=== PATIENT | female | born 1940 | race Caucasian/White ===

== ENCOUNTER → 2017-10-11 | Outpatient (CLI) | payer MEDICARE, OTHER ==
--- NOTE | 2017-10-11 14:48 | Diagnostic Imaging Report ---
TECHNIQUE: Computed tomography imaging of the LEFT lower extremity was performed WITHOUT injected contrast. HISTORY: Thigh mass COMPARISON: None available. FINDINGS: Within the anterior compartment of the thigh, an intramuscular lipoma within the rectus femoris measuring approximately 14 cm in craniocaudal by 8.5 x 4.5 cm in axial dimension. No concerning nodular components or septal thickening. The remainder of the musculature is unremarkable. Advanced left hip degenerative arthrosis with subchondral cystic change. The osseous structures are otherwise unremarkable. 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 Luiz Dick M.D. on 10/11/2017 2:45 PM
== END ==
LOC: CT 13:14
PROVIDERS: ATTEND Surgery
DX: R22.42 Localized swelling, mass and lump, left lower limb (principal)

== ENCOUNTER → 2017-12-21 | Day surgery (SDC) | payer MEDICARE, OTHER ==
[2017-12-16 15:56] LABS: BASOPHILS % 0.5 % (0.0-1.0); EOSINOPHILS # (AUTO) 0.2 (0.0-0.4); EOSINOPHILS % 2.3 % (0.0-6.0); HEMATOCRIT 49.2 % (34.2-44.1); HEMOGLOBIN 16.2 g/dL (12.0-16.0); LYMPHOCYTES # (AUTO) 1.9 (1.0-3.2); LYMPHOCYTES % 24.4 % (18.0-39.1); MEAN CORPUSCULAR HEMOGLOBIN 30.6 pg (28-32); MEAN CORPUSCULAR HGB CONC 32.9 g/dL (31-35); MEAN CORPUSCULAR VOLUME 92.8 fL (81-99); MONOCYTES # (AUTO) 0.5 (0.2-0.8); MONOCYTES % 6.7 % (4.4-11.3); NEUTROPHILS # (AUTO) 5.2 (2.1-6.9); NEUTROPHILS % 65.8 % (38.7-80.0); PLATELET COUNT 168 x10e3/uL (140-360); RED CELL DISTRIBUTION WIDTH 13.4 % (11.7-14.4)
[2017-12-16 16:10] LABS: ANION GAP 13.5 mmol/L (8-16); BLOOD UREA NITROGEN 26 mg/dL (7-26); BUN/CREATININE RATIO 31 (6-25); CALCIUM 10.7 mg/dL (8.4-10.2); CARBON DIOXIDE 28 mmol/L (22-29); CHLORIDE 103 mmol/L (98-107); CREATININE, SERUM 0.84 mg/dL (0.57-1.11); EST GLOMERULAR FILTRATION RATE > 60 ML/MIN (60-); GLUCOSE 98 mg/dL (74-118); POTASSIUM 4.5 mmol/L (3.5-5.1); SODIUM 140 mmol/L (136-145)
--- NOTE | 2017-12-16 16:29 | Diagnostic Imaging Report ---
PROCEDURE: Frontal and lateral views of the chest. COMPARISON: None. INDICATIONS: PRE OP SURGERY LEFT THIGH November FINDINGS: Lines/tubes: None. Lungs: The lungs are well inflated and clear. There is no evidence of pneumonia or pulmonary edema. Pleura: There is no significant pleural effusion or pneumothorax. Heart and mediastinum: The heart and the mediastinum are normal. Atherosclerotic ossification aortic arch. Bones: No acute bony abnormality. Degenerative changes of thoracic spine. IMPRESSION: 1. No acute cardiopulmonary disease. Dictated by: Shukri Ambrose M.D. on 12/16/2017 at 16:32 Electronically approved by: Shukri Ambrose M.D. on 12/16/2017 at 16:32
[~2017-12-21] MED LIST: AMLODIPINE BESY10 MG PO; ASPIR-LOW81 MG PO; DIOVAN HCT 3201 EAC1 PO; ENOXAPARIN SOD INJ 40 MG/0.4 ML SYR SC ONE; FENTANYL CITRATE/PF 100MCG/2 ML INJ ONE; KETAMINE HCL INJ 50 MG/ML 10 ML VIAL ONE; LEVOFLOXACIN 500MG/D5W 100ML 100 ML IV ONE; LISINOPRIL; MELOXICAM PO; METOPROLOL PO; MIDAZOLAM HCL 2 MG/2 ML VIAL ONE; OMEPRAZOLE PO; ONDANSETRON HCL 4 MG ORAL DISINTEGRATING TAB ONE; POTASSIUM CHLO10 ME1 PO; PROPOFOL IV EMULSION 10 MG/ML 20 ML VIAL ONE; SEVOFLURANE INHAL SOLN 250 ML PEN BTL ONE
--- OUTSIDE RECORDS SUMMARY | 2017-12-21 07:07 | XMS REPORT ---
Author Author [facility] Address Unknown Phone Unavailable Care Team Providers Care Environmental Science Program Director Name Role Phone VARUN GUZMAN Unavailable Unavailable Problems This patient has no known problems. Allergies, Adverse Reactions, Alerts This patient has no known allergies or adverse reactions. Medications This patient has no known medications. Results Test Description Test Time Test Comments Text Results Atomic Results Result Comments CHEST 2 VIEWS [place] [id number] [place] [address] Patient Name: JUNE LU MR #: [id number] : 1940 Age/Sex: 77/F Req #: [id number] Adm Physician: Ordered by: VARUN GUZMAN MD Report #: [id number] Location: OR Room/Bed: Procedure: [id number] DX/CHEST 2 VIEWS Exam Date: Exam Time: REPORT STATUS: Signed PROCEDURE: Frontal and lateral views of the chest. COMPARISON: None. INDICATIONS: PRE OP SURGERY LEFT THIGH November FINDINGS: Lines/tubes: None. Lungs: The lungs are well inflated and clear. There is no evidence of pneumonia or pulmonary edema. Pleura: There is no significant pleural effusion or pneumothorax. Heart and mediastinum: The heart and the mediastinum are normal. Atherosclerotic ossification aortic arch. Bones: No acute bony abnormality. Degenerative changes of thoracic spine. IMPRESSION: 1. No acute cardiopulmonary disease. Dictated by: Shukri Urias M.D. on 12/16/2017 at 16:32 Electronically approved by: Shukri Urias M.D. on 12/16/2017 at 16:32 Dictated By: SHUKRI URIAS MD 31 Transcribed By: JUAN on 12/16/17 163 COPY TO: VARUN GUZMAN MD CT LEFT LOWER EXTREMITY WO [place] [address] Patient Name: JUNE LU MR #: [id number] : 1940 Age/Sex: 77/F Req #: [id number] Adm Physician: Ordered by: VARUN GUZMAN MD Report #: [id number] Location: CT Room/Bed: Procedure: [id number] CT/CT LEFT LOWER EXTREMITY WO Exam Date: 10/11/17 Exam Time: 1356 REPORT STATUS: Signed TECHNIQUE: Computed tomography imaging of the LEFT lower extremity was performed WITHOUT injected contrast. HISTORY: Thigh mass COMPARISON: None available. FINDINGS: Within the anterior compartment of the thigh, an intramuscular lipoma within the rectus femoris measuring approximately 14 cm in craniocaudal by 8.5 x 4.5 cm in axial dimension. No concerning nodular components or septal thickening. The remainder of the musculature is unremarkable. Advanced left hip degenerative arthrosis with subchondral cystic change. The osseous structures are otherwise unremarkable. 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 Wilman Enciso M.D. on 10/11/2017 2:45 PM Dictated By: WILMAN ENCISO MD [id number] Transcribed By: EUGENIE on 10/11/17 1440 COPY TO: VARUN GUZMAN MD
--- NOTE | 2017-12-21 10:35 | Operative Report ---
DATE OF PROCEDURE: December 21, 2017 PREOPERATIVE DIAGNOSIS: Large mass of the left thigh. POSTOPERATIVE DIAGNOSIS: Large intramuscular lipomatous mass of the left thigh. OPERATION PERFORMED: Resection of large mass intramuscular of the left thigh. ANESTHESIA: General. COMPLICATIONS: None. ESTIMATED BLOOD LOSS: Minimal. DESCRIPTION OF PROCEDURE: With the patient lying in bed in the supine position under good general anesthesia, the abdomen and left thigh were prepped with Betadine solution and draped in the usual manner. The area overlying the mass in the left upper lateral thigh was then infiltrated with 0.25% Marcaine solution. An incision was made, which was carried down through the subcutaneous tissue and through the superficial fascia. An immediately a large mass emanating from between the muscle layers could be appreciated. The muscle fibers were then retracted laterally and a large lipomatous mass, which was intramuscular was identified, which was slowly and carefully from all of the surrounding structures. All bleeding points were carefully electrocoagulated and the mass was totally and completely removed and sent for pathological examination. The whole area was thoroughly irrigated. Perfect hemostasis was ascertained. The deep layers were then reapproximated with interrupted sutures of 2-0 Vicryl. The superficial fascia was reapproximated with 2-0 Vicryl and the skin was closed with interrupted vertical mattress sutures of 3-0 silk. A dressing was applied. The sponge, lap, and needle count was correct. The patient tolerated the procedure well and returned to the recovery room in stable condition. Job#: [id number]
== END | disposition home or self-care (01) ==
LOC: OR 07:05
PROVIDERS: ATTEND Surgery
DX: D17.9 Benign lipomatous neoplasm, unspecified (principal); I82.409 Acute embolism and thrombosis of unspecified deep veins of unspecified lower extremity; I10 Essential (primary) hypertension; R73.03 Prediabetes; J44.9 Chronic obstructive pulmonary disease, unspecified; K21.9 Gastro-esophageal reflux disease without esophagitis; F32.9 Major depressive disorder, single episode, unspecified; F41.9 Anxiety disorder, unspecified; F17.210 Nicotine dependence, cigarettes, uncomplicated; Z88.0 Allergy status to penicillin; Z88.1 Allergy status to other antibiotic agents; Z88.5 Allergy status to narcotic agent; Z01.810 Encounter for preprocedural cardiovascular examination; Z01.812 Encounter for preprocedural laboratory examination; Z01.818 Encounter for other preprocedural examination; Z86.711 Personal history of pulmonary embolism
CPT/HCPCS: 27339; 36415 ×2; 71046; 80048; 82948; 85025; 88304; 93005; J1650; J1956; J2250